=== PATIENT | female | born 1990 ===

== ENCOUNTER → 2016-08-09 | Outpatient (CLI) | payer OTHER ==
--- NOTE | 2016-08-09 11:08 | DIAGNOSTIC IMAGING REPORT ---
LEFT SHOULDER MIN 2 VIEWS CLINICAL HISTORY: LEFT SHOULDER PAIN pain COMPARISON: None. DISCUSSION: Grade 1 separation left acromioclavicular joint. Glenohumeral joint is unremarkable. There are no abnormal soft tissue calcifications. There is no evidence for soft tissue swelling. IMPRESSION: Grade 1 separation left acromioclavicular joint. Otherwise negative study Electronically signed by: David Lopez M.D. 08/09/2016 11:06 AM Dictated Date/Time: 08/09/2016 11:05 AM
== END | disposition home or self-care (01) ==
LOC: C.RDSM 13:31
PROVIDERS: ATTEND Physician Assistant
DX: M25.512 Pain in left shoulder (principal)